=== PATIENT | female | born 1930 | race Caucasian/White ===

== ENCOUNTER 2017-06-01 15:10 | Emergency (ER) | payer MEDICARE ==
[~2017-06-01] VITALS: Ht 160 cm; Wt 70.7 kg
[~2017-06-01 15:10] MED LIST: ALBU6.7H INH; ANAS1TAB PO; ASPI81TA82 PO; ENOX40P SQ; IMDU30TA PO; LIPI10TA OR; LORA-392 PO; LORTA5 PO; MAXZ25 PO; SOTA80TA PO; [UNRECOGNIZED DRUG - OTHER]
[2017-06-01 15:20] VITALS: BP 200/104; PULSE 66; RESP 16; TEMP 98.2; O2SAT 97
[2017-06-01] MEDS ORDERED: ISOS30TA3 PO (15:30)
[2017-06-01] MEDS ORDERED: SOTA80TA PO (15:30)
[2017-06-01] MEDS ORDERED: ASPI-516 CHEW (15:30)
[2017-06-01] MEDS ORDERED: AMLO5TAB2 PO (15:30)
[2017-06-01] MEDS ORDERED: TRIA37.5 (15:30)
[2017-06-01] MEDS ORDERED: NITR1SUB3 SL (15:30)
[2017-06-01] MEDS ORDERED: ATOR80TA45 PO (15:30)
--- NOTE | 2017-06-01 16:11 | PD ---
HPI Chief Complaint: Fall Time Seen by Provider: 15:27 Travel History International Travel<30 days: No Contact w/Intl Traveler<30days: No Traveled to known affect area: No History of Present Illness HPI 86-year-old woman, complaining of trip and fall. States tripped on sidewalk curb. Complains of pain on the right side of her face for some ecchymosis and bruising. No LOC. On blood thinners. Otherwise feeling well. History Past Medical History Narrative Medical Hypertension CAD Tetanus Vaccination: Unknown Influenza Vaccination: Yes Social History Alcohol Use: Yes (2-3 DRINKS A WK) Tobacco Use: No Allergies-Medications (Allergen,Severity, Reaction): Coded Allergies: No Known Allergies (Verified Adverse Reaction, Unknown, 06/01/17) Reported Meds & Prescriptions Reported Meds & Active Scripts Active Reported Nitroglycerin SL (Nitroglycerin) 0.4 Mg Subl 0.4 Mg SL DIRECTED PRN ONE TABLET UNDER THE TONGUE NEEDED FOR CHEST PAIN, MAY REPEAT EVERY FIVE MINUTES FOR A TOTAL OF 3 DOSES OR CALL 911 IF NO RELIEF Aspirin 81 Mg Chew 81 Mg CHEW DAILY Triamterene-Hydrochlorothiazide 37.5-25 Mg Tab 0.5 Tab DAILY Atorvastatin (Atorvastatin Calcium) 80 Mg Tab 80 Mg PO HS Sotalol (Sotalol HCl) 80 Mg Tab 80 Mg PO BID Isosorbide Mononitrate ER (Isosorbide Mononitrate) 30 Mg Sheryl 30 Mg PO DAILY Amlodipine (Amlodipine Besylate) 5 Mg Tab 5 Mg PO DAILY Review of Systems Except as stated in HPI: all other systems reviewed are Neg Physical Exam Narrative GENERAL: Well-appearing 86-year-old woman, no acute distress. SKIN: Focused skin assessment warm/dry. HEAD: Normocephalic. Ecchymosis and bruising of the right face, especially above the right brow. EYES: Pupils equal and round. No scleral icterus. No injection or drainage. ENT: No nasal bleeding or discharge. Mucous membranes pink and moist. NECK: Trachea midline. No midline tenderness. Painless range of motion. CARDIOVASCULAR: Regular rate and rhythm. No murmur appreciated. RESPIRATORY: No accessory muscle use. Clear to auscultation. Breath sounds equal bilaterally. GASTROINTESTINAL: Abdomen soft, non-tender, nondistended. Hepatic and splenic margins not palpable. MUSCULOSKELETAL: No obvious deformities. No edema. NEUROLOGICAL: Awake and alert. No obvious cranial nerve deficits. Motor grossly within normal limits. Normal speech. PSYCHIATRIC: Appropriate mood and affect; insight and judgment normal. Data Data Last Documented VS Vital Signs Date Time Temp Pulse Resp B/P (MAP) Pulse Ox O2 Delivery O2 Flow Rate FiO2 06/01/17 15:20 98.2 66 16 200/104 (136) [address] Brain W/O Iv Contrast(Rout) (06/01/17 ) MDM Medical Decision Making Medical Screen Exam Complete: Yes Emergency Medical Condition: Yes Differential Diagnosis Head injury, neck injury, other Narrative Course While 86-year-old woman, trip and fall, no evidence of neck injury, will check CT head, she is some periorbital swelling, no evidence of significant facial fracture. No evidence of orbital injury. Diagnosis Primary Impression: Facial contusion Additional Impression: Closed head injury Patient Instructions: General Instructions Additional Instructions: Follow with her primary doctor in the next 2-4 days. Return to the emergency department worsening headache, confusion, or any other new or worsening symptoms. Med/Other Pt SpecificInfo: No Change to Meds Disposition: 01 DISCHARGE HOME Condition: Stable Robin Hannon MD Jun 01, 2017 16:11
--- NOTE | 2017-06-01 17:20 | RADRPT ---
EXAM DATE/TIME: 06/01/2017 17:01 [facility] COMPARISON: No previous studies available for comparison. INDICATIONS : Fall. Right frontal swelling. RADIATION DOSE: 62.23 CTDIvol (mGy) MEDICAL HISTORY : Hypertension. Carcinoma, breast. Anticoagulant therapy. SURGICAL HISTORY : Hysterectomy. ENCOUNTER: Initial ACUITY: 1 day PAIN SCALE: 5/10 LOCATION: Right frontal TECHNIQUE: Multiple contiguous axial images were obtained of the head. Using automated exposure control and adj ustment of the mA and/or kV according to patient size, radiation dose was kept as low as reasonably a chievable to obtain optimal diagnostic quality images. DICOM format image data is available electro nically for review and comparison. FINDINGS: The ventricles are symmetric and normal. There is no abnormal extra-axial fluid accumulation identifi ed. There is no evidence of intracranial hemorrhage or mass. There is patchy mild diminished attenuat ion in periventricular white matter, mainly on the right. Nothing to suggest acute infarction. There is mild supraorbital soft tissue swelling on the right. No evidence of underlying fracture. CONCLUSION: No acute intracranial injury Milton Romero MD on June 01, 2017 at 17:16 Board Certified Radiologist. This report was verified electronically.
== END 2017-06-01 17:41 | disposition home or self-care (01) ==
LOC: PHED 15:10
DX: S00.83XA Contusion of other part of head, initial encounter (principal); W10.1XXA Fall (on)(from) sidewalk curb, initial encounter; I10 Essential (primary) hypertension; I25.10 Atherosclerotic heart disease of native coronary artery without angina pectoris; Z79.82 Long term (current) use of aspirin
CPT/HCPCS: 70450; 99283